=== PATIENT | male | born 1995 | race Caucasian/White ===

== ENCOUNTER 2022-12-17 13:51 | Outpatient (CLI) | payer OTHER | END 2022-12-17 14:11 | disposition home or self-care (01) | LOC: TOM 13:51 | PROVIDERS: ATTEND Orthopaedic Surgery | DX: S62.025A Nondisplaced fracture of middle third of navicular [scaphoid] bone of left wrist, initial encounter for closed fracture (principal); S62.175A Nondisplaced fracture of trapezium [larger multangular], left wrist, initial encounter for closed fracture; S62.145A Nondisplaced fracture of body of hamate [unciform] bone, left wrist, initial encounter for closed fracture; M25.531 Pain in right wrist ==